=== PATIENT | female | born 1990 | race Caucasian/White ===

== ENCOUNTER 2017-11-28 21:56 | Observation (INO) | payer OTHER ==
[2017-11-28] MEDS ORDERED: ONDANSETRON 4 MG/2 ML VIAL ONE (22:13)
[2017-11-28] MEDS ORDERED: NS 1,000 ML IV ONE (22:14)
[2017-11-28] MEDS ORDERED: ONDANSETRON 4 MG/2 ML VIAL IVP ONE (22:14)
[2017-11-28 22:22] LABS: PLATELET COUNT 199 10^3/uL (150-400)
--- NOTE | 2017-11-28 22:34 | EDPHY ---
H & P Stated Complaint: EPIGASTRIC PAIN X 2 HRS Time Seen by Provider: 11/28/17 22:21 HPI/ROS: CHIEF COMPLAINT: Abdominal pain x2 hours HISTORY OF PRESENT ILLNESS: 27-year-old generally healthy female complaining of abdominal pain which started initially as suprapubic pain and pain is described as ascending the cephalad direction to her epigastrium after eating chips, salsa, & beer. She is now complaining of epigastric and suprapubic discomfort midline. Reproducible suprapubic pain with palpation. No fever or chills. No nausea or vomiting. Normal bowel movements. No history of similar. No history of abdominal surgeries. No trauma. No fever or chills. No flu-like symptoms. No recent illness. No back or flank pain. No diarrhea. No melena or hematochezia. No dysuria hematuria increased frequency. Last oral intake at 6 pm. PRIMARY CARE PROVIDER: REVIEW OF SYSTEMS: A ten point review of systems was performed and is negative with the exception of the items mentioned in the HPI PAST MEDICAL & SURGICAL HISTORY: no history of abdominal surgeries. SOCIAL HISTORY: Nonsmoker no alcohol use. No cocaine use. PHYSICAL EXAM (Prior to examination, patient consented to physical exam, hands were washed and my usual and customary physical exam procedures followed) 1) GENERAL: Well-developed, well-nourished, alert and oriented. Appears uncomfortable. Appears nontoxic. 2) HEAD: Normocephalic, atraumatic 3) HEENT: Pupils equal, round, reactive to light bilaterally. Sclera anicteric. Nasopharynx, oropharynx, clear, no lesions. Moist mucous membrane 4) NECK: Full range of motion, no meningeal signs. 5) LUNGS: Clear auscultation bilaterally, no wheezes, no rhonchi, no retractions. 6) HEART: Regular rate and rhythm, no murmur, no heave, no gallop. 7) ABDOMEN: tender to palpation midline epigastrium with negative Schwartz sign. Tender to palpation midline suprapubic region with negative Rovsing's negative McBurney's point pain. Negative peritoneal sign, 8) MUSCULOSKELETAL: Moving all extremities, no focal areas of tenderness, no obvious trauma. No peripheral edema or discoloration. 9) BACK: No CVA tenderness, no midline vertebral tenderness, no fluctuance, no step-off, no obvious trauma, no visual or palpable abnormality. 10) SKIN: No rash, no petechiae. 11) Psychiatric: Patient is oriented X 3, there is no agitation. DIFFERENTIAL DIAGNOSIS: My differential diagnosis includes, but is not limited to, acute appendicitis, acute cholecystitis, bowel obstruction, acute pancreatitis, ovarian torsion, cardiac pathology, pulmonary pathology ectopic , gastritis and urinary tract infection. The patient understands that this diagnosis is provisional and can never be 100% accurate. This is a partial list of diagnoses considered. These considerations are based on history , physical exam, past history and reassessment. - Personal History LMP (Females 10-55): 15-21 Days Ago Current Tetanus Diphtheria and Acellular Pertussis (TDAP): Yes - Medical/Surgical History Hx Asthma: No Hx Chronic Respiratory Disease: No Hx Diabetes: No Hx Cardiac Disease: No Hx Renal Disease: No Hx Cirrhosis: No Hx Alcoholism: No Hx HIV/AIDS: No Hx Splenectomy or Spleen Trauma: No Other PMH: DENIES - Social History Smoking Status: Never smoked Constitutional: Initial Vital Signs Temperature (C) 36.3 C 11/28/17 22:00 Heart Rate 80 11/28/17 22:00 Respiratory Rate 16 11/28/17 22:00 Blood Pressure 120/89 H 11/28/17 22:00 O2 Sat (%) 94 11/28/17 22:00 O2 Delivery Mode Room Air Allergies/Adverse Reactions: No Allergies [NKDA] Allergy (Verified 11/29/17 02:40) Home Medications: Medication Instructions Recorded Control 1 tab PO DAILY 11/28/17 Dextroamphetamine/Amphetamine 30 mg PO DAILY 11/29/17 [Adderall Xr 30 mg Capsule] Acetaminophen [Tylenol ES 500 mg 1,000 mg PO Q8H tab 11/30/17 (*)] HYDROmorphone HCL [Dilaudid 2 mg 2 mg PO Q4 #15 tab 11/30/17 (*)] Ketorolac Tromethamine [Toradol 1 tab PO Q6 5 Days tab 11/30/17 10mg tab] Medical Decision Making - Diagnostics Imaging Results: Images reviewed myself ED Course/Re-evaluation: 10:30 p.m.: Will obtain ultrasound, diagnostic studies including urinalysis. She describes epigastric discomfort. Doubt pulmonary embolus, negative perc score. Will administer GI cocktail. Doubt cardiac etiology in the absence of risk factors.. 12:20 a.m.: Re-evaluation. Discussed with the patient her imaging results which are negative for acute surgical pathology, no evidence of ovarian torsion , she is not , no evidence of acute cholecystitis. She in addition her knee abdomen is reexamined she has no McBurney's point pain. Doubt acute appendicitis. No evidence of UTI. 12:37 a.m.: Re-evaluation. She is feeling worse at this time. She is complaining of worsening abdominal pain. She vomited her GI cocktail. I re- examined her abdomen she is diffusely tender to palpation all quadrants. Recommended CT imaging at this time. Indications risks benefits discussed with patient and she consents. 1:[address] Conde consultation, in the ER to see patientl, requests serum lactate level for the findings of suspected volvulus vs internal hernia. - Data Points Laboratory Results: Laboratory Results 11/28/17 22:10 11/28/17 22:10 Medications Given: Discontinued Medications Acetaminophen (Tylenol) 1,000 mg PO Q8H [facility] Stop: 05/28/18 02:59 Last Admin: 11/30/17 11:39 Dose: 1,000 mg Al Hydroxide/Mg Hydroxide (Maalox Susp) 30 ml PO ONCE ONE Stop: 11/29/17 00:02 Last Admin: 11/29/17 00:29 Dose: 30 ml Amphetamine/Dextroamphetamine (Adderall) 30 mg PO DAILY [facility] Stop: 05/28/18 08:59 Last Admin: 11/30/17 08:47 Dose: Not Given Fentanyl (Sublimaze) 100 mcg IVP EDNOW ONE Stop: 11/28/17 22:48 Last Admin: 11/28/17 22:50 Dose: 100 mcg Fentanyl (Sublimaze) 25 - 100 mcg IVP Q5M PRN PRN Reason: PACU, IMMEDIATE Pain control Stop: 11/29/17 05:30 Last Admin: 11/29/17 03:25 Dose: 50 mcg Hydromorphone HCl (Dilaudid) 0.5 mg IVP EDNOW ONE Stop: 11/29/17 00:42 Last Admin: 11/29/17 00:46 Dose: 0.5 mg Hydromorphone HCl (Dilaudid) 0.5 mg IVP EDNOW ONE Stop: 11/29/17 02:14 Last Admin: 11/29/17 02:16 Dose: 0.5 mg Hydromorphone HCl (Dilaudid) 0.2 - 0.4 mg IVP Q1HR PRN PRN Reason: Pain, Breakthrough Stop: 12/09/17 02:58 Last Admin: 11/30/17 02:21 Dose: 0.4 mg Hyoscyamine Sulfate (Levsin, Hyomax-Sl) 0.25 mg PO ONCE ONE Stop: 11/29/17 00:02 Last Admin: 11/29/17 00:28 Dose: 0.25 mg Sodium Chloride (Ns) 1,000 mls @ 0 mls/hr IV ONCE ONE; Wide Open PRN Reason: Protocol Stop: 11/28/17 22:15 Last Admin: 11/28/17 22:17 Dose: 1,000 mls Sodium Chloride (Ns) 1,000 mls @ 0 mls/hr IV ONCE ONE PRN Reason: Wide Open Stop: 11/29/17 01:45 Last Admin: 11/29/17 01:55 Dose: 1,000 mls Ertapenem 1 gm/ Sodium (Chloride) 100 mls @ 200 mls/hr IV EDNOW ONE PRN Reason: Protocol Stop: 11/29/17 02:58 Last Admin: 11/29/17 02:56 Dose: 100 mls Lactated Ringer's (Lr) 1,000 mls @ 100 mls/hr IV CONT ANDRE Stop: 05/28/18 02:59 Last Admin: 11/29/17 23:34 Dose: 1,000 mls Ketorolac Tromethamine (Toradol) 30 mg IVP Q6HRS ANDRE Stop: 12/04/17 05:59 Last Admin: 11/30/17 12:43 Dose: 30 mg Lidocaine (Lidocaine 2% Viscous) 15 ml PO ONCE ONE Stop: 11/29/17 00:02 Last Admin: 11/29/17 00:29 Dose: 15 ml Midazolam HCl (Versed) 2 mg IVP ONCALL ONE Stop: 11/29/17 03:14 Last Admin: 11/29/17 03:25 Dose: 2 mg Miscellaneous Medication (Dextroamphetamine/Amphetamine [Adderall Xr 30 Mg Capsule]) 30 mg PO DAILY ANDRE Stop: 05/29/18 08:59 Last Admin: 11/30/17 08:47 Dose: Not Given Ondansetron HCl (Zofran) 4 mg IVP EDNOW ONE Stop: 11/28/17 22:15 Last Admin: 11/28/17 22:17 Dose: 4 mg Ondansetron HCl (Zofran) 4 mg IVP EDNOW ONE Stop: 11/29/17 00:42 Last Admin: 11/29/17 00:47 Dose: 4 mg Departure - Departure Disposition: [facility] Inpatient Acute Clinical Impression: Volvulus of small intestine Abdominal pain Qualifiers: Abdominal location: epigastric Qualified Code(s): R10.13 - Epigastric pain Condition: Fair
[2017-11-28] MEDS ORDERED: fentaNYL 100 MCG/2 ML INJ IVP ONE (22:47)
[2017-11-29] MEDS ORDERED: HYOSCYAMINE SULFATE 0.125 MG TAB PO ONE (00:01)
[2017-11-29] MEDS ORDERED: LIDOCAINE 2% VISCOUS 15 ML UDCUP PO ONE (00:01)
[2017-11-29] MEDS ORDERED: MAG HYDROX/AL HYDROX/SIMETH 30 ML UDCUP PO ONE (00:01)
[2017-11-29] MEDS ORDERED: ONDANSETRON 4 MG/2 ML VIAL IVP ONE (00:41)
[2017-11-29] MEDS ORDERED: HYDROmorphONE/DILAUDID 1 MG/ML INJ IVP ONE ×2 (00:41→02:13)
[2017-11-29] MEDS ORDERED: IOPAMIDOL (ISOVUE-300) 100 ML BTL ONE (00:42)
[2017-11-29] MEDS ORDERED: ONDANSETRON 4 MG/2 ML VIAL ONE ×2 (00:42→03:22)
[2017-11-29] MEDS ORDERED: NS 1,000 ML IV ONE (01:44)
[2017-11-29] MEDS ORDERED: ERTAPENEM 1 GM in NS 100 ML IV ONE (02:29)
[2017-11-29] MEDS ORDERED: ONDANSETRON 4 MG/2 ML VIAL IVP PRN ×2 (02:59→04:30)
[2017-11-29] MEDS ORDERED: MIDAZOLAM 2 MG/2 ML VIAL IVP ONE (03:13)
--- NOTE | 2017-11-29 03:13 | PDANEPAE ---
ANE History of Present Illness ex laparoscopy ANE Past Medical History - Cardiovascular History Hx Hypertension: No Hx Arrhythmias: No Hx Chest Pain: No Hx Coronary Artery / Peripheral Vascular Disease: No Hx CHF / Valvular Disease: No Hx Palpitations: No - Pulmonary History Hx COPD: No Hx Asthma/Reactive Airway Disease: No Hx Recent Upper Respiratory Infection: No Hx Oxygen in Use at Home: No Hx Sleep Apnea: No - Endocrine History Hx Diabetes: No ANE Review of Systems Review of systems is: negative Review of Systems: - Exercise capacity Exercise capacity: >=4 METS ANE Patient History - Allergies Allergies/Adverse Reactions: No Allergies [NKDA] Allergy (Verified 11/29/17 02:40) - Home Medications Home medications: home medication list seen and reviewed Home Medications: Control 11/28/17 [Last Taken Unknown] Dextroamphetamine/Amphetamine [Adderall Xr 30 mg Capsule] 30 mg PO 11/29/17 [ Last Taken Unknown] - Anes Hx Anes Hx: no prior problems - Smoking Hx Smoking Status: Never smoked ANE Labs/Vital Signs - Labs Result Diagrams: 11/28/17 22:10 11/28/17 22:10 - Vital Signs Blood Pressure: 125/78 Heart Rate: 71 Respiratory Rate: 18 O2 Sat (%): 100 Height: 167.64 cm Weight: 65.317 kg ANE Physical Exam - Airway Neck exam: FROM Mallampati Score: Class 1 Mouth exam: normal dental/mouth exam - Pulmonary Pulmonary: no respiratory distress - Cardiovascular Cardiovascular: regular rate and rhythym - ASA Status ASA Status: I, E ANE Anesthesia Plan Anesthesia Plan: general endotracheal anesthesia
[2017-11-29] MEDS ORDERED: fentaNYL 100 MCG/2 ML INJ ONE ×2 (03:18→03:19)
[2017-11-29] MEDS ORDERED: PROPOFOL 200 MG/20 ML VIAL ONE (03:19)
[2017-11-29] MEDS: fentaNYL 100 MCG/2 ML INJ IVP PRN ×2 (03:20→03:25)
[2017-11-29] MEDS ORDERED: ROCURONIUM 100 MG/10 ML VIAL ONE (03:22)
[2017-11-29] MEDS ORDERED: DEXAMETHASONE 4 MG/ML VIAL ONE (03:22)
[2017-11-29] MEDS ORDERED: KETOROLAC 30 MG/1 ML SDV ONE (03:22)
[2017-11-29] MEDS ORDERED: MIDAZOLAM 2 MG/2 ML VIAL ONE (03:27)
[2017-11-29] MEDS ORDERED: HYDROmorphONE/DILAUDID 2 MG/ML INJ ONE (03:43)
--- NOTE | 2017-11-29 04:11 | GHP ---
[f rep st] PREOP HISTORY AND PHYSICAL DATE OF ADMISSION: 11/29/2017 ADMITTING DIAGNOSIS: Bowel obstruction, possibly due to internal hernia or volvulus, doubt inflammatory bowel disease. HISTORY: The patient is a 27-year-old female who left work at [employer] at 5:45 this evening. She and her girlfriend's had chips and salsa and she had 2 beers. She went home and tried to urinate. After urinating, she started having a lower abdominal pain, which was described as crampy in nature. The pain became more generalized and moved up in her abdomen. Now it is described as cramping but also has a sharp component to it with nausea. She tried Tums, Tylenol, and a heating pad. There is no history of a recent upper respiratory tract infection or diarrhea. There is no history of travel or antibiotics in the last 6 months. There is no history in the patient or the family of inflammatory bowel disease. There are no prior similar symptoms, and she has had no abdominal surgery. A CT had been performed, which shows fluid in the stomach with decompressed proximal small bowel. There is a distal small bowel that has an area of distention and looks like mesenteric edema in the left lower quadrant. Whether this represents a twist, adhesive band or in fact is a penetration of the mesentery of the sigmoid colon is unclear. SOCIAL HISTORY: She does not smoke. She drinks a glass of wine 2-3 nights a week. ALLERGIES: She has no known drug allergies. MEDICATIONS: She takes oral contraceptives and Adderall. PAST SURGICAL HISTORY: She has had no prior surgery as mentioned above. PAST MEDICAL HISTORY: No history of rheumatic fever, tuberculosis, hepatitis, or transfusions. REVIEW OF SYSTEMS: She has had 3 concussions in the past. Review of systems is quite negative. There are no limitations on her activities. No history of steroid use. FAMILY HISTORY: Mother is 61. Her father is 70. Both are alive and well. She has an older brother, who is 38; an older sister, who is 34; both are healthy. There are no bleeding disorders, clotting disorders, difficulty with anesthesia in the patient or the family. In the ER, she has received several doses of Zofran, pain medications. PHYSICAL EXAMINATION: VITAL SIGNS: Her blood pressure has remained in approximately the 120s over 70s to 80s. Her heart rate has been in the 80s. Respirations are 16. Her temperature was 36.3 on admission. GENERAL: She is having severe abdominal discomfort with episodes of retching. HEENT: Skull is normocephalic and atraumatic. LYMPHATICS: There is no cervical, supraclavicular, axillary or inguinal lymphadenopathy identified. NECK: Otherwise unremarkable. BACK: Unremarkable. SPINE: Palpably normal. LUNGS: Clear to auscultation. CARDIAC: Shows S1, S2 to be normal with no split of S2, without murmurs, rubs, or gallops. ABDOMEN: Essentially no bowel sounds. Psoas and obturator signs are negative. She is tender with cough, just to the right and cephalad to the umbilicus at a level of 2/10. To palpation on a scale of 1-10, left upper quadrant is 2, left midabdomen is 4, left lower quadrant is 6, epigastrium is 4, periumbilical area is 5, suprapubic area is 6, right upper quadrant is 2, right midabdomen is 2, right lower quadrant is 2. LOWER EXTREMITIES: Unremarkable. LABORATORY DATA: White count 7.1, hematocrit is 38, platelet count is 199. Urine has specific gravity of 1.014. Beta hCG is negative. Her sodium is 142. Her potassium is 3.5. Her lactate is 1.4. In reviewing her CAT scan, I did not appreciate any mesenteric adenitis. I do not appreciate any masses. There is a loop of dilated bowel with some fluid around it. IMPRESSION: Distal small bowel compromise. PLAN: Will plan to perform a laparoscopic evaluation (possible exploratory laparotomy) to identify and treat this issue. I do not feel that nasogastric suction with observation would be helpful, and I do not find on physical examination or CT any hernias to account for this process. /[id number]/MODL MTDD
[2017-11-29] MEDS ORDERED: ESMOLOL HCL 100 MG/10 ML VIAL IV ONE (04:22)
[2017-11-29] MEDS ORDERED: DEXAMETHASONE 4 MG/ML VIAL IVP PRN (04:30)
[2017-11-29] MEDS ORDERED: HYDROmorphONE/DILAUDID 1 MG/ML INJ IVP PRN (04:30)
[2017-11-29] MEDS ORDERED: LR 500 ML IV PRN (04:30)
[2017-11-29] MEDS ORDERED: METOCLOPRAMIDE 10 MG/2 ML VIAL IVP PRN (04:30)
[2017-11-29] MEDS ORDERED: PHENYLEPHRINE HCL 100 MCG/ML SYR IVP PRN (04:30)
[2017-11-29] MEDS ORDERED: ALBUTEROL 3 ML DEYVIAL IH PRN (04:30)
[2017-11-29] MEDS ORDERED: oxyCODONE IR 5 MG TAB PO PRN (04:30)
[2017-11-29] MEDS ORDERED: NALOXONE HCL 0.4 MG/ML INJ IVP PRN (04:30)
[2017-11-29] MEDS ORDERED: HYDROCODONE/APAP 5/325 TAB PO PRN (04:30)
[2017-11-29] MEDS ORDERED: ACETAMINOPHEN 500 MG TAB PO PRN (04:30)
--- NOTE | 2017-11-29 04:51 | POSTOPPROG ---
Post Op Note Date of Operation: 11/29/17 Surgeon: Alfredo Conde Anesthesia: GET(General Endotracheal) Pre-op Diagnosis: Small Bowel obstruction Post-op Diagnosis: Small Bowel obstruction due to adhesions Indication: Small Bowel obstruction Procedure: Exp Laparoscopy, Enterolysis Findings: Small Bowel obstruction due to adhesions Inf/Abcess present in the surg proc area at time of surgery?: No EBL: Minimal Total fluids administered: 650 Complications: none Specimen(s): none
--- NOTE | 2017-11-29 05:12 | GOP ---
[f rep st] OPERATIVE REPORT DATE OF OPERATION: 11/29/2017 SURGEON: Alfredo Conde MD ANESTHESIA: General endotracheal. PREOPERATIVE DIAGNOSIS: Small bowel obstruction. POSTOPERATIVE DIAGNOSIS: Small bowel obstruction due to adhesions. PROCEDURE PERFORMED: Exploratory laparoscopy with enterolysis. FINDINGS: Small bowel obstruction due to adhesions. SPECIMENS: None. ESTIMATED BLOOD LOSS: Minimal. INDICATIONS: Small bowel obstruction. DESCRIPTION OF PROCEDURE: The patient was intubated on the gurney and then moved to the operative table. A Leroy catheter was then inserted. The abdomen was carefully clipped, prepped, and draped. A surgical time-out was carried out and agreed to by all members of the operative team. A curvilinear incision was planned in the infraumbilical fold. The skin was sharply incised. Dissection was carried down to the anterior rectus sheath bilaterally. The anterior rectus sheath was elevated between Allis clamps. The fascia was divided in the midline. Pursestring of #0 PDS was placed in the fascia. The peritoneum was entered. The #11 to 12 mm disposable Aleyda trocar was positioned and insufflation was carried out to 15 mmHg. On inspection, there was serosanguinous fluid in the pelvis. A left mid abdomen 5 mm incision was made obliquely and a 5 mm port was placed. Careful manipulation with a blunt probe revealed the small bowel entering a narrow canal in the left pelvis. Two oblique 5 mm incisions were made in the right abdomen, 1 in the right mid abdomen and 1 in the right lower quadrant. The 5 mm ports were placed in the sites. The area of adhesion was identified. This was opened using Harmonic scalpel. This allowed reduction of the trapped intestine. The rest of the adhesion was lysed to prevent recurrence of the process. The small bowel was set aside and irrigation was carried out. Hemostasis checked and found to be excellent. The bowel was then recheck. It was hyperemic in the area that had been incarcerated and appeared to be absolutely viable. Ports were removed under direct vision. Inverted simple suture of #0 PDS was placed in the midline infraumbilical fascia and tied. The pursestring was now tied. Inverted simple sutures of #4-0 Vicryl were placed in the dermis at all skin incisions, closing them appropriately. Mastisol and Steri-Strips were used to approximate the skin edge. Band-Aids were applied. The patient was transferred to Recovery in stable and satisfactory condition. TOTAL FLUIDS: 650 cc. COMPLICATIONS: None. /[id number]/MODL MTDD
[2017-11-29] MEDS: ACETAMINOPHEN 500 MG TAB PO SCH ×3 (05:25→19:48)
[2017-11-29] MEDS: KETOROLAC 30 MG/1 ML SDV IVP SCH ×4 (05:28→23:32)
[2017-11-29] MEDS: HYDROmorphONE/DILAUDID 1 MG/ML INJ IVP PRN (05:48)
[2017-11-29] MEDS: LR 1,000 ML IV SCH ×2 (05:48→23:34)
[2017-11-29 06:50] LABS: PLATELET COUNT 173 10^3/uL (150-400)
--- NOTE | 2017-11-29 08:36 | SOAPPROG ---
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 Sore Some flatus Tolerating clears Abdomen flat cdi, BS hypoactive Plan: 11/29/17 08:36 11/29/17 18:28 Objective: Vital Signs Temp Pulse Resp BP Pulse Ox 36.6 C 61 15 113/76 96 11/29/17 08:11 11/29/17 08:11 11/29/17 08:11 11/29/17 08:11 11/29/17 08:11 Laboratory Results 11/29/17 06:30 11/29/17 06:30 11/28/17 11/29/17 11/30/17 05:59 05:59 05:59 Intake Total 50 Balance 50 ICD10 Worksheet Patient Problems: Problems Problem Status Onset Abdominal pain Acute Volvulus of small intestine Acute
--- NOTE | 2017-11-29 09:17 | ASMTCMCOM ---
CM Note CM Note Notes: Pt's chart reviewed for D/C planning. Pt is a 27y/o female who presented to the ED with abdominal pain which turned out to be a small bowel obstruction due to adhesions. There is no known significant medical hx.that could be related to this. Pt works at [employer]. Prior to hospitalization Pt lived independently. It is anticipated that she will have no CM needs upon D/C. D/C Plan: Anticipate independent. Date Signed: 11/29/2017 09:13 AM Electronically Signed By:Adrianna Gallagher
[2017-11-29] MEDS: ADDERALL 20 MG TAB PO SCH (09:53)
[2017-11-30] MEDS: ACETAMINOPHEN 500 MG TAB PO SCH ×2 (02:20→11:39)
[2017-11-30] MEDS: HYDROmorphONE/DILAUDID 1 MG/ML INJ IVP PRN (02:21)
[2017-11-30] MEDS: KETOROLAC 30 MG/1 ML SDV IVP SCH ×2 (05:11→12:43)
[2017-11-30 08:20] VITALS: BP 111/69
--- NOTE | 2017-11-30 08:37 | SOAPPROG ---
SOAP Progress Note Assessment/Plan: 11/30/17 08:34 POD#2 Assessment: Doing well, passing gas Plan: Advance diet, consider discharge Subjective: I'm hungry Objective: Vital Signs Temp Pulse Resp BP Pulse Ox 36.7 C 71 16 111/69 93 11/30/17 08:17 11/30/17 08:17 11/30/17 08:17 11/30/17 08:17 11/30/17 08:17 Laboratory Results 11/29/17 06:30 11/29/17 06:30 11/29/17 11/30/17 12/01/17 05:59 05:59 05:59 Intake Total 50 2235 Balance 50 2235 - Time Spent With Patient Time Spent With Patient: 15 Physical Exam - Physical Exam General Appearance: WD/WN, alert, no apparent distress Respiratory: lungs clear, normal breath sounds Cardiac/Chest: regular rate, rhythm Abdomen: normal bowel sounds, non-tender, soft Pelvic Exam: deferred Rectal: deferred Back: Normal inspection Skin: normal color, warm/dry, other (Incisions clean and dry) Neuro/Psych: no motor/sensory deficits, alert, normal mood/affect ICD10 Worksheet Patient Problems: Problems Problem Status Onset Abdominal pain Acute Volvulus of small intestine Acute
[2017-11-30] MEDS: ADDERALL 20 MG TAB PO SCH (08:47)
[2017-11-30] MEDS ORDERED: Dextroamphetamine/Amphetamine [Adderall Xr 30 Mg Capsule] PO SCH (09:00)
--- NOTE | 2017-11-30 11:56 | ASMTLACE ---
ALYCIA Length of stay for Answers: 1 day current admission Acuity / Level of Answers: No Care: Did the patient have an inpatient admission? # of Emergency department Answers: 1-2 visits in the last 6 months Score: 2 Date Signed: 11/30/2017 11:55 AM Electronically Signed By:PATRIZIA Mullen
--- NOTE | 2017-11-30 12:06 | ASDISCHSUM ---
Discharge Information Plan Status:Home with No Needs Medically Cleared to Leave:11/30/2017 Discharge Date:11/30/2017 CM D/C Disposition:Home, Routine, Self-Care ADT D/C Disposition:Home, Routine, Self-Care Projected Discharge Date:11/30/2017 Transportation at D/C:Family Discharge Delay Reason: Follow-Up Date:11/30/2017 Discharge Slot: Final Diagnosis: Placement Information Patient Contact Information Contact Name:YASMINE Relationship:Sister Address: Work Phone: City: [facility] Phone: State/[place] Code: Email: Financial Information Financial Class:HMO and PPO Plans Primary Plan Desc:[employer] Primary Plan Number:[id number] Secondary Plan Desc: Secondary Plan Number: Assessment Information LACE LACE Length of stay for Answers: 1 day current admission Acuity / Level of Answers: No Care: Did the patient have an inpatient admission? # of Emergency department Answers: 1-2 visits in the last 6 months Score: 2 Date Signed: 11/30/2017 11:55 AM Electronically Signed By:PATRIZIA Mullen [facility] CM Progress Note CM Note CM Note Notes: Pt's chart reviewed for D/C planning. Pt is a 27y/o female who presented to the ED with abdominal pain which turned out to be a small bowel obstruction due to adhesions. There is no known significant medical hx.that could be related to this. Pt works at [employer]. Prior to hospitalization Pt lived independently. It is anticipated that she will have no CM needs upon D/C. D/C Plan: Anticipate independent. Date Signed: 11/29/2017 09:13 AM Electronically Signed By:Adrianna Gallagher Intervention Information
--- NOTE | 2017-11-30 12:38 | ASMTDCNOTE ---
Case Management Discharge Discharge Order Complete? Answers: Yes Patient to Obtain Answers: Independently Medications Transportation Arranged Answers: Family/Friends Discharge Comments Notes: Pt is s/p expl lap with enterolysis for a SBO. She is discharging home today with no CM needs. Date Signed: 11/30/2017 12:37 PM Electronically Signed By:PATRIZIA Mullen
--- NOTE | 2017-11-30 13:49 | GDS ---
[f rep st] DISCHARGE SUMMARY SURGERY PERFORMED: Treatment of a small bowel obstruction secondary to incarceration with strangulation of mid ileum. CONDITION AT DISCHARGE: Improved. DISPOSITION: Home. DIET: There are no restrictions on her diet, but I suggest she avoid constipating foods such as bananas, rice, applesauce, and cheese. Texture is unremarkable. MEDICATIONS: Tylenol 1000 mg every 8 hours scheduled, Toradol 10 mg every 6 hours for 5 days scheduled, and Dilaudid 2 mg every 4 hours as needed for pain. She will continue her control and continue her Adderall XR 30 mg every morning. ACTIVITY: For 3 weeks she is to lift less than 10 pounds, shower only, and keep her Steri-Strips in place. She is cautioned to use an alternate form of contraception for one month. She is to use a multivitamin with 100% of the recommended daily allowances of zinc, copper, and C. She will follow up with Dr. Keo Merida's office in 2 weeks. HOSPITAL COURSE: The patient was admitted and taken to the operating room. She is discharged approximately 36 hours postop. She has done well. /[id number]/MODL MTDD
== END 2017-11-30 13:45 | disposition home or self-care (01) ==
LOC: F1N 11-29 05:22
PROVIDERS: ADMIT Surgery; ATTEND Surgery
PROC: 0DN84ZZ Release Small Intestine, Percutaneous Endoscopic Approach (ICD-10-PCS; principal; 2017-11-29 02:40)
DX: K56.50 Intestinal adhesions [bands], unspecified as to partial versus complete obstruction (principal); Z88.0 Allergy status to penicillin
CPT/HCPCS: 44180; 74177; 76705; 76856; 96361; 96374; 96375; 96376; 99285; G0378; J1100; J1170; J1335; J1885; J2250; J2405; J2704; J3010; Q9967